=== PATIENT | male | born 1970 | race Caucasian/White ===

== ENCOUNTER 2017-04-14 05:21 | Outpatient (CLI) | payer BC ==
[~2017-04-14] VITALS: Ht 190.5 cm; Wt 106.6 kg
[~2017-04-14 05:21] MED LIST: ALPR.5T; CRS350T; HYDR-32; METO50TA7; MTH10T; NFLYR75C; OXC10TCR; OXYC1TAB12; OXYC1TAB87; TIZAN4T; [UNRECOGNIZED DRUG - OTHER]
[2017-04-14] MEDS ORDERED: ALPR0.5T7 PO (11:30)
[2017-04-14] MEDS ORDERED: LISI-552 PO (11:38)
[2017-04-14] MEDS ORDERED: MELO15TA39 PO (11:38)
[2017-04-14] MEDS ORDERED: CYCL10TA9 PO (11:38)
== END 2017-04-14 11:43 ==
LOC: PREOP 05:21
PROVIDERS: ATTEND Surgery
DX: Z01.818 Encounter for other preprocedural examination (principal); K62.5 Hemorrhage of anus and rectum

== ENCOUNTER 2017-04-18 08:53 | Day surgery (SDC) | payer BC ==
[~2017-04-18] VITALS: Ht 190.5 cm; Wt 106.6 kg
[~2017-04-18 08:53] MED LIST changes: +ALPR0.5T7 PO; +CYCL10TA9 PO; +LISI-552 PO; +MELO15TA39 PO
[2017-04-18] MEDS ORDERED: NS IV 500 ML 500 ML IV SCH (09:15)
[2017-04-18 09:22] VITALS: BP 138/85
[2017-04-18] MEDS: fentaNYL INJECTION 100 MCG/2 ML AMP IVP PRN ×4 (09:34→09:47)
[2017-04-18] MEDS: MIDAZOLAM 2 MG/2 ML (VERSED) VIAL IVP PRN ×7 (09:35→09:48)
[2017-04-18] MEDS ORDERED: MIDAZOLAM 2 MG/2 ML (VERSED) VIAL ONE ×3 (09:36)
--- NOTE | 2017-04-18 09:42 | Conscious Sedation/ASA ---
Conscious Sedation Pre-Proced Time Reviewed: 09:42 ASA Class: 2 Airway Mallampati Classification: ([place] appropriate class) I. II. III, IV Lungs Heart ASA score ASA 1: a normal healthy patient ASA 2: a patient with a mild systemic disease (mid diabetes, controlled hypertension, obesity ASA 3: a patient with a severe systemic disease that limits activity (angina , COPD, prior Myocardial infarction) ASA 4: a patient with an incapacitating disease that is a constant threat to life (CHF, renal failure) ASA 5: a moribund patient not expected to survive 24 hrs. (ruptured aneurysm) ASA 6: a declared brain patient whose organs are being harvested. For emergent operations, add the letter E after the classification Grade 1 Sedation Plan: Discussed options with patient/fam Note The patient is an appropriate candidate to undergo the planned procedure, sedation, and anesthesia. The patient immediately re-assessed prior to indication. BALJINDER EARLY MD Apr 18, 2017 9:42 am
--- NOTE | 2017-04-18 09:42 | History & Physicial ---
History of Present Illness History of Present Illness Reason for visit/HPI to undergo colonoscopy regarding chronic rectal bleeding. No family history of colon cancer. Date of Admission Date Seen by Provider: Apr 18, 2017 Time Seen by Provider: 09:15 I consulted on this patient on 04/18/17 09:40 Attending Physician Baljinder Lo MD Admitting Physician Zeeshan Clark MD Consult Allergies and Home Medications Allergies Coded Allergies: No Known Drug Allergies (Verified Allergy, Unknown, 04/22/08) Home Medications Alprazolam 0.5 Mg Tablet, 0.5 MG PO TID PRN for ANXIETY, (Reported) Cyclobenzaprine HCl 10 Mg Tablet, 10 MG PO BID PRN for MUSCLE SPASMS, (Reported) Lisinopril 20 Mg Tablet, 20 MG PO DAILY, (Reported) Meloxicam 15 Mg Tablet, 15 MG PO DAILY, (Reported) Past [id number]-[id number] Hx Patient Social History Marrital Status: Employed/Student: employed Alcohol Use: Occasionally Uses Number of Drinks Today: AA Alcohol Beverage of Choice: Beer Recreational Drug Use: No Smoking Status: Never a Smoker Recent Foreign Travel: No Contact w/other who traveled: No Recent Hopitalizations: No Seasonal Allergies Seasonal Allergies: No Surgeries Yes Appendectomy Respiratory No Cardiovascular Yes Hypertension Neurological No Reproductive System Hx Reproductive Disorders: No Musculoskeletal Yes Chronic Back Pain Endocrine History of Endocrine Disorders: No HEENT History of HEENT Disorders: No Cancer No Psychosocial History of Psychiatric Problem: No Integumentary History of Skin or Integumenta: No Constitutional: no symptoms reported EENTM: no symptoms reported Respiratory: no symptoms reported Cardiovascular: no symptoms reported Gastrointestinal: see HPI Genitourinary: no symptoms reported Musculoskeletal: back pain Skin: no symptoms reported Psychiatric/Neurological: No Symptoms Reported Physical Exam Vital Signs Vital Sign - Last 12Hours 04/18/17 09:22 Temp 97.5 Pulse 74 Resp 18 B/P (MAP) 138/85 Pulse Ox 97 O2 Delivery Room Air Capillary Refill : General Appearance: No Apparent Distress HEENT: Normal ENT Inspection Neck: Normal Inspection Respiratory: Lungs Clear Cardiovascular: Regular Rate, Rhythm Gastrointestinal: Non Tender, Soft Rectal: Deferred Back: Normal Inspection Extremity: Normal Inspection Neurologic/Psychiatric: Alert, Oriented x3 Skin: Warm/Dry Assessment/Plan Assessment and Plan long-standing rectal bleeding. Internal hemorrhoids polyps etc. discussed. Details of colonoscopy, post polypectomy bleeding, iatrogenic perforation etc. reviewed thoroughly. Seems to be in agreement to proceed. Problems: BALJINDER LO MD Apr 18, 2017 9:42 am
--- OUTSIDE RECORDS SUMMARY | 2017-04-18 09:50 | XMS REPORT | Continuity of Care Document ---
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 Visit Date/Time Discharge Status Pt. Type Provider Facility Loc./Unit Complaint [id number] 06/24/2015 08:48:00 2014 23:59:59 CLS Outpatient AGA FUENTES APRN [facility] RAD [id number] 06/01/2015 09:52:00 2014 23:59:59 CLS Outpatient AGA FUENTES APRN [facility] RAD [id number] 01/14/2011 11:51:00 Document Registration [id number] 01/12/2011 08:57:00 Document Registration
--- NOTE | 2017-04-18 10:03 | Endo Procedure Record ---
Endo Procedure Report Date of Procedure Apr 18, 2017 Surgeon (s) BALJINDER EARLY MD Post Procedure/Op Diagnosis 20 mm pedunculated polyp at the mid sigmoid colon Procedure Performed colonoscopy to cecum Snare polypectomy Description of Procedure Anesthesia Type: Conscious Sedation Specimen(s) collected/removed sigmoid polyp Description of the Procedure indication for procedure: This gentleman came in for colonoscopy to evaluate ongoing rectal bleeding. He denied any family history of colon cancer. Informed consent was obtained after reviewing the procedure in detail. Description of procedure: He was placed in left lateral decubitus position and his vital signs were monitored. Conscious sedation was achieved using Versed and fentanyl. Digital rectal examination was unremarkable. The colonoscope was then introduced in the rectum and advanced all the way up to the cecum Quality of bowel preparation was excellent. The scope was then withdrawn slowly and the mucosa examined in a systematic fashion. Findings: 20 mm, pedunculated polyp at the mid sigmoid colon that was snared and retrieved using a Vogel net device. He tolerated the procedure well and was taken back to the nursing area in a stable condition. Impression: Rectal bleeding due to large sigmoid polyp. Snare polypectomy completed. Recommend repeating surveillance colonoscopy in one year. Copies To: RUBY WHITEHEAD MD, XAVIER M MD Apr 18, 2017 10:03 am
--- NOTE | 2017-04-18 10:04 | Discharge Inst-Simple/Standard ---
Discharge Inst-Standard Discharge Medications New, Converted or Re-Newed RX: Other Patient Instructions/Follow Up Plan of Care/Instructions/FU: to avoid aspirin products for 1 week. Repeat colonoscopy in one year Activity as Tolerated: Yes Discharge Diet: No Restrictions BALJINDER EARLY MD Apr 18, 2017 10:04 am
[2017-04-18 10:20] VITALS: BP 129/85
[2017-04-18 10:45] VITALS: BP 141/91
[2017-04-18 12:29] VITALS: BP 141/91
== END 2017-04-18 10:50 | disposition home or self-care (01) ==
LOC: ENDO 08:53
PROVIDERS: ATTEND Surgery
DX: D12.5 Benign neoplasm of sigmoid colon (principal); I10 Essential (primary) hypertension

== ENCOUNTER → 2018-10-03 | Outpatient (CLI) | payer BC ==
[~2018-10-03] MED LIST changes: +HOLD METFORMIN - RECEIVED CONTRAST 20 ML VIAL IV SCH; +IOHEXOL 350 MG/ML 100 ML (OMNIPAQUE 350) VIAL IV ONE
--- NOTE | 2018-10-03 14:23 | Diagnostic Imaging Report ---
PROCEDURE: CT head with and without contrast. TECHNIQUE: Multiple contiguous axial images were obtained through the brain before and after the administration of intravenous contrast. Auto Exposure Controls were utilized during the CT exam to meet ALARA standards for radiation dose reduction. INDICATION: Headache. Dizziness. Blurred vision. COMPARISON: None. FINDINGS: The ventricles and cortical sulci are age-appropriate. Postcontrast images show no abnormal areas of enhancement. There is no midline shift or mass-effect. No acute intra-axial hemorrhage is seen. There are no abnormal areas of increased or decreased density to suggest acute hemorrhage or edema. No extra-axial masses or collections are present. The bony calvarium is intact. The visualized paranasal sinuses show mild scattered mucosal thickening. The mastoid air cells are clear. IMPRESSION: 1. No acute intracranial abnormality. No CT evidence of mass, acute infarct or intracranial hemorrhage. Dictated by: Dictated on workstation # [id number]
== END ==
LOC: RAD 13:54
PROVIDERS: ATTEND Nurse Practitioner Family
DX: H53.8 Other visual disturbances (principal); G43.909 Migraine, unspecified, not intractable, without status migrainosus; R42 Dizziness and giddiness
CPT/HCPCS: 70470

== ENCOUNTER → 2018-10-10 | Outpatient (CLI) | payer BC ==
[~2018-10-10] MED LIST changes: +GADOBUTROL 10 MMOL/10 ML (GADAVIST) VIAL IV ONE; -HOLD METFORMIN - RECEIVED CONTRAST 20 ML VIAL IV SCH; -IOHEXOL 350 MG/ML 100 ML (OMNIPAQUE 350) VIAL IV ONE
--- NOTE | 2018-10-10 14:40 | Diagnostic Imaging Report ---
PROCEDURE: MR imaging of the brain with and without contrast. TECHNIQUE: Multiplanar, multisequence MR imaging of the brain was performed with and without contrast. INDICATION: Headache and occasional dizziness. FINDINGS: The ventricles and sulci are within normal limits. There is no hydrocephalus. There is no midline shift. No intracranial mass, hemorrhage or extra-axial fluid collection. There are no areas of diffusion restriction appreciated to suggest an acute CVA. There are no abnormal areas of contrast enhancement. The frontal, ethmoid, sphenoid and maxillary sinuses are clear. Mastoid air cells are clear. The globes and intraorbital structures are unremarkable. The central, arterial and dural venous sinus flow voids are preserved. IMPRESSION: Unremarkable MRI brain. Dictated by: Dictated on workstation # [id number]
== END ==
LOC: RAD 13:40
PROVIDERS: ATTEND Nurse Practitioner Family
DX: G43.909 Migraine, unspecified, not intractable, without status migrainosus (principal)
CPT/HCPCS: 70553